=== PATIENT | male | born 1995 | race Asian ===

== ENCOUNTER 2022-03-27 19:14 | Emergency (ER) | payer SELFPAY ==
[2022-03-27] MEDS ORDERED: Boostrix 0.5 ML (Tdap) VIAL (>/=7 yrs of age) ONE (19:35)
[2022-03-27] MEDS ORDERED: Morphine 4 MG/ML VIAL ONE (20:21)
[2022-03-27] MEDS ORDERED: Ketorolac Tromethamine 30 MG/ML VIAL ONE (20:21)
[2022-03-27] MEDS ORDERED: Bacitracin 1 PK ONE (20:41)
[2022-03-27] MEDS ORDERED: Fluorescein Opthalmic Strip ONE (20:41)
[2022-03-27] MEDS ORDERED: Proparacaine 0.5% Opth 15 ML BOT ONE (20:43)
== END 2022-03-27 22:04 | disposition home or self-care (01) ==
LOC: ERS 19:14
DX: S00.531A Contusion of lip, initial encounter (principal); S00.81XA Abrasion of other part of head, initial encounter; S60.511A Abrasion of right hand, initial encounter; S03.2XXA Dislocation of tooth, initial encounter; W19.XXXA Unspecified fall, initial encounter
CPT/HCPCS: 70450; 70486; 72125; 90471; 90715; 96374; 96375; J1885; J2270